=== PATIENT | female | born 1965 | race Caucasian/White ===

== ENCOUNTER → 2016-11-23 | Outpatient (CLI) | payer BC ==
--- NOTE | 2016-11-25 16:02 | MAMMOGRAPHY REPORT ---
BILATERAL DIGITAL SCREENING MAMMOGRAM TOMOSYNTHESIS WITH CAD: 11/23/2016 CLINICAL HISTORY: Routine screening. Patient has no complaints. TECHNIQUE: Breast tomosynthesis in addition to standard 2D mammography was performed. Current study was also evaluated with a Computer Aided Detection (CAD) system. COMPARISON: Comparison is made to exams dated: 04/17/2014 mammogram, 02/20/2013 mammogram, 02/15/2012 mammogram, 02/02/2011 mammogram, 01/13/2010 mammogram - [facility], and 01/07/2009. BREAST COMPOSITION: There are scattered areas of fibroglandular density in both breasts. FINDINGS: There are stable asymmetries in the left breast. No new suspicious mass, architectural dis tortion or cluster of microcalcifications is seen. IMPRESSION: ACR BI-RADS CATEGORY 1: NEGATIVE There is no mammographic evidence of malignancy. A 1 year screening mammogram is recommended. The pa tient will receive written notification of the results. Approximately 10% of breast cancers are not detected with mammography. A negative mammographic report should not delay biopsy if a clinically suggestive mass is present. Tana Villegas M.D. ay/:11/24/2016 17:34:44 Pantry Chef: Romana HUMPHREY(Juliano)(M), [facility] letter sent: Normal 1/2 BI-RADS Code: ACR BI-RADS Category 1: Negative
== END | disposition home or self-care (01) ==
LOC: C.MAMM 16:08
PROVIDERS: ATTEND Obstetrics & Gynecology
DX: Z12.31 Encounter for screening mammogram for malignant neoplasm of breast (principal)

== ENCOUNTER 2022-03-20 07:54 | Inpatient (IN) ==
--- NOTE | 2022-02-23 09:04 | PAT Medication Instructions ---
Medication Instructions Date of Service February 23, 2022 Home Medications glucosamine 375 ad-qppjnnsal-vrk no1 500 mg-C 15 mg-alberto 0.5 mg tablet (Tuxxeunjzue-Vqtiglruxmg-TOA Complex) 2 tab PO QAM hydroxyzine HCl 25 mg tablet 25 mg PO HS PRN Anxiety ibuprofen 600 mg tablet 600 mg PO Q8H PRN Pain losartan 25 mg tablet 25 mg PO QAM multivitamin 1 tab PO QAM spironolactone 25 mg tablet 25 mg PO QAM ASK your surgeon for instructions ibuprofen 600 mg tablet 600 mg PO Q8H PRN Pain STOP taking 2 weeks before surgery (or as soon as possible if surgery is within 2 weeks) glucosamine 375 hx-kwrvdutvl-pta no1 500 mg-C 15 mg-alberto 0.5 mg tablet (Waosbhyjccf-Ektjdyohwhj-YRB Complex) 2 tab PO QAM DO NOT take the morning of surgery losartan 25 mg tablet 25 mg PO QAM multivitamin 1 tab PO QAM spironolactone 25 mg tablet 25 mg PO QAM Take evening before surgery hydroxyzine HCl 25 mg tablet 25 mg PO HS PRN Anxiety (if needed) Other Notes If you have any questions please call us at [phone] or [phone] or [phone] or [phone]
--- NOTE | 2022-02-24 12:03 | Anesthesiology Consultation ---
Date of Service February 24, 2022 Assessment & Plan (1) Encounter for pre-operative examination: - COVID screening: Per assessment on 02/24: No known COVID-19 positive contacts or current COVID-19 related symptoms. Travel screen negative. Patient vaccinated. At surgeon discretion if preop Covid testing being done. - Check test AM DOS Chart Review Chart Review: Acceptable Risk for Surgery and Patient seen in Pre Admission Testing Teaching & Discussion Pre-Anesthesia Teaching/Discussion Notes: Instructed NPO after midnight before surgery,except medications with 15 cc of water. Medication instructions provided according to the PAT guidelines. History Surgery Operation Date: 03/20/22 07:45 Proposed Procedures p L4-L5 Decompression and Fusion, Spinal Cord Monitoring - Pernell Ellis, Height/Weight Height: 5 ft 3 in Weight: 110.1 kg Allergies Allergy/AdvReac Type Severity Reaction Status Date / Time Penicillins Allergy Intermediate Hives Verified 02/20/22 08:56 Sulfa (Sulfonamide Allergy Intermediate Hives Verified 02/20/22 08:56 Antibiotics) Medications Home Medications Medication Instructions Recorded Confirmed Last Taken glucosamine 375 pv-sbplgkiwu-jps 2 tab PO QAM 02/20/22 02/20/22 Unknown no1 500 mg-C 15 mg-alberto 0.5 mg tablet (Lmtireuafgk-Akmlkjczdgr-LPS Complex) hydroxyzine HCl 25 mg tablet 25 mg PO HS PRN Anxiety 02/20/22 02/20/22 Unknown ibuprofen 600 mg tablet 600 mg PO Q8H PRN Pain 02/20/22 02/20/22 Unknown losartan 25 mg tablet 25 mg PO QAM 02/20/22 02/20/22 Unknown multivitamin 1 tab PO QAM 02/20/22 02/20/22 Unknown spironolactone 25 mg tablet 25 mg PO QAM 02/20/22 02/20/22 Unknown Past Medical History Medical History Anxiety Situational Borderline high cholesterol Cardiac murmur As child Degenerative disc disease History of COVID-19 x2 total, most recent 09/2021 > symptoms resolved Hypertension Morbid obesity Osteoarthritis Exercise / Class Metabolic Activity II 4-5 Yardwork/Stairs/Walk up hill (one FS (no CP, no SOB)) Past Family History Family History Father Diabetes Grandmother (Maternal) Colon cancer Past Surgical History Surgical History History of arthroscopy left knee History of arthroscopy right elbow History of cholecystectomy Nausea and vomiting after administration of anesthetic agent Slow to wake up after anesthesia [place] teeth extracted Past Anesthesia History No Family Hx of Anesthesia Complications and Other ("Slow wake up" > no hx of reintubation) History of PONV History of PONV and Hx of Motion Sickness Social History Smoking Status: Never smoker Do You Dip or Chew Tobacco: No Hx Alcohol Use: Yes Alcohol type: wine alcohol intake frequency: holidays/special occasions only Hx Substance Use: No substance use type: does not use Review of Systems Patient denies chest pain, shortness of breath, dyspnea on exertion, fever, chills, cough, wheezing, palpitations. Physical Exam Vital Signs VITALS BP 156/84 P 68 TEMP 98.1 SP02 96%RA RESP 18 PHYSICAL Full cervical extension range of motion. Full TMJ range of motion. TMD 3 finger breaths Mallampati Score 3 Dentition: intact, crown (side) Lungs: clear throughout to auscultation Cardiac: regular rate and rhythm, no murmurs noted Spine: normal Carotid arteries: negative bruit Extremities: no edema Lab Results Anesthesia Preop Results Results Anesthesia Widget: WBC 8.12 K/ul (4.8-10.8) 02/24/22 Hgb 14.3 g/dl (12.0-16.0) 02/24/22 Hct 42.3 % (34.1-44.9) 02/24/22 Plt 277 K/uL (130-400) 02/24/22 Na 139 mmol/L (136-145) 02/24/22 K 3.6 mmol/L (3.5-5.1) 02/24/22 Cl 106 mmol/L (98-107) 02/24/22 CO2 25 mmol/L (21-32) 02/24/22 BUN 13 mg/dl (6-23) 02/24/22 Creat 0.65 mg/dl (0.6-1.2) 02/24/22 Glucose Level 84 mg/dl (70-99(Fasting)) 02/24/22 PT 10.3 Seconds (9.0-12.0) 02/24/22 PTT 28.1 Seconds (21.0-31.0) 02/24/22 INR 1.0 (0.9-1.1) 02/24/22 Urine Color Yellow 02/24/22 Urine Appearance Clear (Clear) 02/24/22 Urine pH 6.0 (4.5-7.5) 02/24/22 Urine Specific [place] 1.004 (1.000-1.030) 02/24/22 Urine Protein Negative (Negative) 02/24/22 Urine Glucose (UA) Negative (Negative) 02/24/22 Urine Ketones Negative (Negative) 02/24/22 Urine Blood Negative (Negative) 02/24/22 Urine Nitrite Negative (Negative) 02/24/22 Urine Bilirubin Negative (Negative) 02/24/22 Urine Urobilinogen Negative (Negative) 02/24/22 Urine Leukocyte Esterase Negative (Negative) 02/24/22 Blood Type A Positive 02/24/22 Antibody Screen NEGATIVE 02/24/22 Testing Electrocardiogram Date: 02/24/22 NSR with sinus arrhythmia at 72bpm. unconfirmed report. Chest X-Ray Date: 02/24/22 FINDINGS:Cardiomediastinal and hilar silhouettes are within normal limits. No pneumothorax, pleural effusion, airspace consolidation or overt pulmonary edema. Surgical clips of the upper abdomen. The bones of the chest appear grossly intact. IMPRESSION: No acute process. COVID-19 Risk Screen Screening Information COVID-19 Screen Date: 02/24/22 Exposure 21 Days Family/Household +COVID Last 21 Days: No Exposure 10 Days Any COVID Exposure Last 10 Days: No Symptoms Last 10 Days Experienced COVID Sx Last 10 Days: No + COVID 0-90 Days COVID + in Last 0-90 Days: No
[~2022-03-20 07:54] MED LIST: ACETAMINOPHEN 500 MG TAB PO SCH; CLINDAMYCIN/D5W 900 MG/50 ML BAG IV SCH; GABAPENTIN 900 MG DOSE PO SCH; LR 15ML/HR IV SCH
[2022-03-20] MEDS ORDERED: DEXAMETHASONE SOD INJ 4 MG/ML VIAL ONE (08:16)
[2022-03-20] MEDS ORDERED: fentaNYL citrate 100 MCG/2 ML VIAL ONE (08:16)
[2022-03-20] MEDS ORDERED: ROCURONIUM BROMIDE 10 MG/ML 5 ML VIAL IV ONE (08:16)
[2022-03-20] MEDS ORDERED: LIDOCAINE 2% MPF LOCAL 5 ML VIAL INFIL ONE (08:16)
[2022-03-20] MEDS ORDERED: MIDAZOLAM HCL 1 MG/ML 2ML VIAL ONE (08:16)
[2022-03-20] MEDS ORDERED: PROPOFOL IV EMULSION 10 MG/ML 20 ML VIAL IV ONE (08:16)
[2022-03-20] MEDS ORDERED: ONDANSETRON INJ 2 MG/ML 2 ML VIAL ONE ×2 (08:16→11:34)
[2022-03-20] MEDS ORDERED: HYDROmorphone INJ 2 MG/ML SYR/VIAL ONE (08:17)
[2022-03-20] MEDS ORDERED: SODIUM CHLORIDE 0.9% INJ 10 ML VIAL ONE (08:26)
[2022-03-20] MEDS ORDERED: ATROPINE SULFATE 0.1 MG/ML 10ML SYR IV PRN (08:57)
[2022-03-20] MEDS ORDERED: ePHEDrine sulfate 50 MG/ML AMP IV PRN (08:57)
[2022-03-20] MEDS ORDERED: PROMETHAZINE HCL 6.25 MG in SODIUM CHLORIDE 0.9% 50 ML IV PRN (08:57)
[2022-03-20] MEDS ORDERED: ONDANSETRON INJ 2 MG/ML 2 ML VIAL IV PRN ×2 (08:57→14:32)
[2022-03-20] MEDS ORDERED: fentaNYL citrate 100 MCG/2 ML VIAL IV PRN (08:57)
[2022-03-20] MEDS ORDERED: HYDROmorphone INJ 1 MG/ML SYRINGE IV PRN (08:57)
[2022-03-20] MEDS ORDERED: SCOPOLAMINE 1 MG TDSY TD STA (09:07)
[2022-03-20 09:15] LABS: Pregnancy Test, Serum Negative (Negative)
--- NOTE | 2022-03-20 09:34 | History & Physical Bridge Note ---
Date of Service March 20, 2022 History & Physical Bridge Note I have examined the patient, reviewed the History & Physical and in the interval since the performance of the History & Physical I have noted the following changes of clinical significance: no changes noted
--- NOTE | 2022-03-20 09:36 | History & Physical Report ---
Date of Service March 20, 2022 Assessment & Plan (1) Neurogenic claudication due to lumbar spinal stenosis: Plan: L4-L5 decompression and fusion History of Present Illness Chief Complaint: Back and leg pain Primary Care Provider: Slick Faustin This is a 56-year-old male who presents above-mentioned diagnosis after failing steps course of nonoperative care is here for surgical invention. Allergies Allergy/AdvReac Type Severity Reaction Status Date / Time Penicillins Allergy Intermediate Hives Verified 03/20/22 08:24 Sulfa (Sulfonamide Allergy Intermediate Hives Verified 03/20/22 08:24 Antibiotics) Home Medications Medication Instructions Recorded Confirmed Type glucosamine 375 kw-gfceucqnj-bjd 2 tab PO QAM 02/20/22 03/20/22 History no1 500 mg-C 15 mg-alberto 0.5 mg tablet (Zfgyxcbvunt-Ipxaghmbvdc-XVZ Complex) hydroxyzine HCl 25 mg tablet 25 mg PO HS PRN Anxiety 02/20/22 03/20/22 History ibuprofen 600 mg tablet 600 mg PO Q8H PRN Pain 02/20/22 03/20/22 History losartan 25 mg tablet 25 mg PO QAM 02/20/22 03/20/22 History multivitamin 1 tab PO QAM 02/20/22 03/20/22 History spironolactone 25 mg tablet 25 mg PO QAM 02/20/22 03/20/22 History Past Med/Surg History Medical History Anxiety Situational Borderline high cholesterol Cardiac murmur As child Degenerative disc disease History of COVID-19 x2 total, most recent 09/2021 > symptoms resolved Hypertension Morbid obesity Osteoarthritis Surgical History History of arthroscopy left knee History of arthroscopy right elbow History of cholecystectomy Nausea and vomiting after administration of anesthetic agent Slow to wake up after anesthesia [place] teeth extracted Family History Father Diabetes Grandmother (Maternal) Colon cancer Social History (System 02/02/22 @ 13:25 by Radha Gorman) Smoking Status: Never smoker Second Hand Exposure: No; Do You Dip or Chew Tobacco: No; Tobacco Cessation Education Requested by Patient: No Hx Alcohol Use: Yes Alcohol type: wine Hx Substance Use: No Preferred Language: [place] Communication Ability: Effective Facetor Required: No Beliefs That Will Affect Care: None Current Living Situation: Spouse Other Information That Helps Us Care for You: No Feels Safe at Home: Yes Safety Concerns: Feels Safe At This Time Assistive Devices: Glasses Physical Exam Physical Exam: Patient is alert and oriented Heart regular rhythm Lungs clear Results & Data Results & Data ([facility]) Vital Signs (Past 12 Hours) Vital Signs Temp Pulse Resp BP Pulse Ox O2 Del Method 03/20/22 08:26 36.7 C 73 18 161/76 H 97 Room Air
[2022-03-20] MEDS ORDERED: ceFAZolin 330 MG/ML 1 GM VIAL ONE (09:48)
[2022-03-20] MEDS ORDERED: BUPIVACAINE/EPINEPHRINE 0.25% 1:200,000 30 ML VIAL ONE (09:56)
[2022-03-20] MEDS ORDERED: SUGAMMADEX SODIUM 200 MG/2 ML VIAL IV ONE (10:42)
[2022-03-20] MEDS ORDERED: FAMOTIDINE/PF 20 MG/2 ML VIAL IV ONE (10:52)
[2022-03-20] MEDS ORDERED: FLOSEAL HEMOSTATIC MATRIX 10ML TOP ONE (11:19)
--- NOTE | 2022-03-20 11:42 | Operative Report ---
Post Operative Report Pre & Post Diagnosis Operation Date: 03/20/22 09:35 Pre-Op Diagnosis: Lumbar spinal stenosis with facet cyst and radiculopathy Post-Op Diagnosis: Same I identified the patient and participated in the time-out.: Yes Procedure Operation Date: 03/20/22 09:35 Actual Procedures #1 lumbar decompression bilateral medial facetectomies and foraminotomies L4-5. #2 posterior spinal fusion L4-5. #3 placement posterior instrumentation L4-5. #4 interbody fusion L4-L5. #5 placement of Spira 14 x 26 mm cage at L4-5. #6 placement of locally harvested morselized autograft in the posterior gutters. #7 placement I factor model V toss interbody space and posterior gutters. Surgeon Pernell Ellis, DO Piercing Artist Eric Zimmerman Estimated Blood Loss 50 Findings See Below The patient is 5 foot 3 weighing over 111 kg with a BMI in excess of 43. The patient's body habitus did contribute to significant technical difficulty required he was retractors longer instruments noted to perform her procedure. This had at least 50% increased to the operative time. Specimens None Indications This is a 56-year-old female who presents above-mentioned diagnosis after failing course of nonoperative care is here for surgical invention. Description of Procedure Patient was met with identified informed consent obtained. Patient was then taken to the operative suite underwent a patient placed in a prone position attack table top Sukhjinder frame. All bony prominences well-padded eyes inspected to ensure no external pressure placed upon them. This point the lumbar spine was prepped and draped in normal sterile fashion. Sharp dissection with the a ssistance of Bovie cautery performed down to and exposing the lamina transverse processes of L4 and L5. From caudal to cephalad fashion complete laminectomy of L4 was performed including bilateral medial facetectomies foraminotomies addressing stenosis as well as a massive facet cyst on the right facets. After complete decompression pedicle screws were placed in L4-5 bilaterally with assistance of fluoroscopy and properly sized stephan placed. By way of a transforaminal portion right complete discectomy was performed endplates curetted to subcortical any bone and a 14 x 26 mm spiral cage with I factor tapped in position. The rods were then compressed locked in final position bilaterally. The transverse processes of L4-5 burred to subcortical bleeding bone. I factor model V testing locally harvested morselized autograft placed in the posterior gutters. 15 round MEAGHAN drain inserted. The incision was then closed with 1 Vicryl the fascia 2-0 Vicryl subcutaneously and 4 Monocryl for fascial closure. Steri-Strips dressings placed. Patient waken taken to PACU in stable condition. Please note spinal cord monitoring was utilized at the procedure no changes noted. Lastly Eric Zimmerman was present out the entire surgeon while the patient positioning complex portions of the surgery and final skin closure. I attest to the content of the Intraoperative Record and any orders documented therein. Any exceptions are noted below.
--- NOTE | 2022-03-20 12:41 | Fluoroscopy Report ---
FL lumbar spine 2-3V CLINICAL HISTORY: L4-L5 DECOMPRESSION AND FUSION COMPARISON STUDY: None. FLUOROSCOPY TIME: 16 seconds. FLUOROSCOPIC IMAGES: 2 FINDINGS: Fluoroscopy was provided during L4-L5 discectomy, posterior decompression and bilateral ped icle screw fusion. Hardware is intact. No unexpected radiopaque foreign bodies. IMPRESSION: Fluoroscopy provided during L4-L5 discectomy, posterior decompression and bilateral pedi giselle screw fusion. ACT 112: Negative or not required by law. Electronically signed by: Luca Swift M.D. 03/20/2022 12:39 PM
[2022-03-20] MEDS ORDERED: SODIUM CHLORIDE 0.9% 50 ML BAG ONE (13:03)
[2022-03-20] MEDS ORDERED: PROMETHAZINE HCL INJ 25 MG/ML 1 ML VIAL ONE (13:04)
[2022-03-20] MEDS ORDERED: bisacodyL 10 MG SUPP PR PRN (14:32)
[2022-03-20] MEDS ORDERED: ALUMINUM/MAGNESIUM SUSP 30 ML UDC PO PRN (14:32)
[2022-03-20] MEDS ORDERED: LORazepam 0.5 MG TAB PO PRN (14:32)
[2022-03-20] MEDS ORDERED: LORazepam 0.5 MG in SYRINGE 0 ML IV PRN (14:32)
[2022-03-20] MEDS ORDERED: traMADol HCL 50 MG TABLET PO PRN (14:32)
[2022-03-20] MEDS ORDERED: NALOXONE HCL 0.4 MG/1 ML VIAL/CARP IV PRN (14:32)
[2022-03-20] MEDS ORDERED: SOD PHOSPHATE/SOD BIPHOSPHATE ENEMA 132 ML BTL PR PRN (14:32)
[2022-03-20] MEDS ORDERED: hydrOXYzine HCl 25 MG TAB PO PRN ×2 (14:32)
[2022-03-20] MEDS ORDERED: HYDROmorphone INJ 0.5 MG/0.5 ML SYR IV PRN (14:32)
[2022-03-20] MEDS ORDERED: METOCLOPRAMIDE HCL INJ 5 MG/ML 2 ML VIAL IV PRN (14:32)
[2022-03-20] MEDS ORDERED: DO NOT ADMINISTER PNEUMOCOCCAL VACCINE PRN (14:32)
[2022-03-20] MEDS ORDERED: PROMETHAZINE HCL 12.5 MG in SODIUM CHLORIDE 0.9% 50 ML IV PRN (14:32)
[2022-03-20] MEDS ORDERED: DO NOT ADMINISTER FLU VACCINE PRN (14:32)
[2022-03-20] MEDS ORDERED: oxyCODONE HCL IR 5 MG TAB (IMMEDIATE RELEASE) PO PRN (14:32)
[2022-03-20] MEDS ORDERED: ACETAMINOPHEN 1,000 MG/100 ML VIAL IV PRN (14:32)
[2022-03-20] MEDS ORDERED: FAMOTIDINE 20 MG TAB PO PRN (14:32)
[2022-03-20] MEDS ORDERED: MAGNESIUM HYDROXIDE SUSP 30 ML UDC PO PRN (14:32)
[2022-03-20] MEDS ORDERED: ONDANSETRON 4 MG OD TAB PO PRN (14:32)
[2022-03-20] MEDS ORDERED: diphenhydrAMINE Capsule 25 MG CAP PO PRN (14:32)
[2022-03-20] MEDS: LACTATED RINGER'S 1,000 ML IV SCH ×2 (15:03→21:56)
[2022-03-20] MEDS: CHECK SCOPOLAMINE PATCH PLACEMENT SCH ×2 (16:49→22:29)
[2022-03-20] MEDS: CLINDAMYCIN/D5W 600 MG/50 ML BAG IV SCH (17:08)
[2022-03-20] MEDS: DOCUSATE SODIUM/SENNA 50/8.6MG TAB PO SCH (19:50)
[2022-03-20] MEDS: HYDROmorphone INJ 1 MG/ML SYRINGE IV PRN (19:55)
[2022-03-21] MEDS: CLINDAMYCIN/D5W 600 MG/50 ML BAG IV SCH (01:14)
[2022-03-21] MEDS ORDERED: Nursing to Pharmacy Communication SCH (04:15)
[2022-03-21] MEDS: POLYETHYLENE (MIRALAX) 17 GM PACK PO SCH ×2 (05:30→12:35)
[2022-03-21] MEDS: HYDROmorphone INJ 1 MG/ML SYRINGE IV PRN ×2 (05:37→22:02)
[2022-03-21] MEDS: LACTATED RINGER'S 1,000 ML IV SCH (07:03)
[2022-03-21 07:10] LABS: Basophils # (auto) 0.02 K/uL (0-0.2); Basophils % (auto) 0.1 %; Hematocrit (blood only) 38.2 % (34.1-44.9); Hemoglobin 12.5 g/dl (12.0-16.0); Immature Granulocytes # (auto) 0.12 K/uL (0.00-0.02); Immature Granulocytes % (auto) 0.7 %; Lymphocytes # (auto) 1.37 K/uL (1.2-3.4); Mean Corpuscular Hemoglobin 29.9 pg (25.0-34.0); Mean Corpuscular Hgb Conc 32.7 g/dL (32.0-36.0); Mean Corpuscular Volume 91.4 fL (80.0-100.0); Mean Platelet Volume 9.9 fL (9.4-12.3); Monocytes # (auto) 0.84 K/uL (0.24-0.82); Monocytes % (auto) 4.9 %; Neutrophils # (auto) 14.68 K/uL (1.4-6.5); Neutrophils % (auto) 86.3 %; Platelet Count 273 K/uL (130-400); RDW Coefficient of Variation 12.7 % (11.5-14.5); RDW Standard Deviation 42.2 fL (36.4-46.3); Red Blood Count 4.18 M/uL (3.93-5.22); White Blood Count 17.03 K/ul (4.8-10.8)
[2022-03-21 07:35] LABS: BUN Creatinine Ratio 15.6 (10-20); Calcium 8.4 mg/dl (8.5-10.1); Creatinine Clr Calc Pharmacy 120.8 ml/min; Est GFR (African American) 117.3 ml/min; Est GFR (Non-African American) 101.2 ml/min; Potassium 3.9 mmol/L (3.5-5.1)
[2022-03-21] MEDS: SPIRONOLACTONE 25 MG TAB PO SCH (08:58)
[2022-03-21] MEDS: CHECK SCOPOLAMINE PATCH PLACEMENT SCH ×3 (08:58→20:00)
[2022-03-21] MEDS: dexAMETHasone 6 MG in SYRINGE 0 ML IV SCH (08:58)
[2022-03-21] MEDS: LOSARTAN POTASSIUM 25 MG TAB PO SCH (08:58)
--- NOTE | 2022-03-21 10:50 | Orthopedic Progress Note ---
Date of Service March 21, 2022 Assessment & Plan (1) Neurogenic claudication due to lumbar spinal stenosis: Plan: At this time we will continue physical therapy monitor MEAGHAN operatively discharge home in the next few days. Admission and Anticipated Discharge Date Admission Date: March 20, 2022 Subjective Back pain controlled leg pain improved Physical Exam Physical Exam: Patient is comfortable. Is constricted testing. Results & Data ([facility]) Vital Signs (Past 12 Hours) Vital Signs Temp Pulse Pulse Resp BP BP Pulse Ox 03/21/22 07:57 36.8 C 83 16 131/77 95 03/21/22 02:50 36.7 C 85 18 163/84 H 94 03/21/22 00:55 36.8 C 90 18 155/84 H 92 O2 Del Method 03/21/22 07:57 Room Air 03/21/22 02:50 Room Air 03/21/22 00:55 Room Air
[2022-03-21] MEDS: ACETAMINOPHEN 500 MG TAB PO PRN (12:41)
[2022-03-21] MEDS: DOCUSATE SODIUM/SENNA 50/8.6MG TAB PO SCH (19:32)
[2022-03-22] MEDS: LOSARTAN POTASSIUM 25 MG TAB PO SCH (08:28)
[2022-03-22] MEDS: SPIRONOLACTONE 25 MG TAB PO SCH (08:28)
[2022-03-22] MEDS: dexAMETHasone 6 MG in SYRINGE 0 ML IV SCH (08:29)
[2022-03-22] MEDS: CHECK SCOPOLAMINE PATCH PLACEMENT SCH (08:29)
[2022-03-22] MEDS: ACETAMINOPHEN 500 MG TAB PO PRN (08:31)
--- NOTE | 2022-03-22 11:35 | Discharge Summary ---
Date of Service March 22, 2022 Admission HPI Per Admitting Provider This is a 56-year-old male who presents above-mentioned diagnosis after failing steps course of nonoperative care is here for surgical invention. Principal Diagnosis Lumbar spinal stenosis with neurogenic medication Discharge Data Allergies Allergy/AdvReac Type Severity Reaction Status Date / Time Penicillins Allergy Intermediate Hives Verified 03/20/22 08:24 Sulfa (Sulfonamide Allergy Intermediate Hives Verified 03/20/22 08:24 Antibiotics) Procedures Performed Operation Date: 03/20/22 09:35 Actual Procedures p L4-L5 Decompression and Fusion, Spinal Cord Monitoring(Not Applicable) - Pernell Ellis DO Ordered Studies 03/20/22 09:35 [place] lumbar spine 2-3V Routine Hospital Course (1) Neurogenic claudication due to lumbar spinal stenosis: Patient 1 lumbar fusion tolerated this well stable 3. Lumbar postop day 1 she was up and ambulating progressed to postop day 2. MEAGHAN drain decreasing probably. Pain well controlled. Socially discharged home. Discharge orders and instructions from the chart for further review. Total Time Total Time Spent Total Time Spent (In Minutes): 20 minutes Discharge Plan Discharge Items Patient Disposition: Home - Self-Care Reason For Visit: Radiculopathy, Lumbar Region Discharge Diagnosis: Lumbar spinal stenosis with radiculopathy Activity: As commented below Non-emergency contact: Primary Care Provider Call non-emergency contact if: you have any medication questions Follow-up/Referrals: Slick Faustin [Primary Care Provider] - Diet: Regular Addtl Attending Provider Instructions: ACTIVITY RECOMMENDATIONS: SELF CARE INSTRUCTIONS AFTER THORACIC/LUMBAR FUSIONS 1. You may walk to your tolerance. It is good exercise for your legs and back. Expect some back and intermittent leg aches and pains. 2. You may perform "counter-top" level activities (make a sandwich, rudy with a project, etc.). 3. No bending or lifting of more than 10 pounds or back twisting of any nature (roll like a log when turning in bed). 4. You may ride in a car for 20-30 minutes at a time. No driving until after your first visit with your doctor. 5. Frequent changes of position and restricting sitting to 30 minutes at a time will help limit the amount of back spasms and stiffness you may experience. 6. You may discontinue the use of ambulatory aids (cane, crutches, etc.) once your strength and confidence allow. 7. You may capsule filling machine operator the shower and let water strike your incision when you arrive home at least once daily. Do not take a tub bath, sit in a hot tub or go into a swimming pool until after your first recheck in the office. SPECIAL CARE INSTRUCTIONS: VERY IMPORTANT TO READ AND REVIEW A. Your surgical incision has been closed with a cosmetic suture under the skin that will dissolve in about 6 weeks. In 14 days, you can use a pair of clean scissors and cut the suture that is left outside of the skin at the ends of your incision. 1. The small skin tapes can be removed 7 days after surgery if they have not fallen off by that point. 2. You may keep the wound open to air as much as possible to promote healing after post-op day number 5 unless told otherwise by your doctor. 3. If you think the wound looks like it is becoming infected (redness or worsening drainage) and/or you are experiencing fever, chill or worsening back pain and muscle spasms, contact the office so that we may evaluate you as soon as possible. B. Complications are uncommon, but please contact us if you have any signs or symptoms of: 1. wound infection (fever higher than 102.5 degrees F, redness, separation of wound, drainage, or increasing pain from the incision) 2. blood clots in legs (pain, swelling, redness and warmth in legs) 3. urinary tract infection (fever higher than 102.5 degrees F, burning upon urination or increased frequency of urination) 4. nerve problems (inability to walk on your toes or heels, numbness, loss of bowel or bladder control) 5. any other symptoms that concern you C. Please call the office at if you have any concerns or questions about your operation or recovery. D. No smoking! Smoking drastically decreases the chance of a solid fusion. E. Do not take any anti-inflammatory medications (Indocin, Advil, Motrin, Aspirin, Naprosyn, etc.) as these may inhibit the chance of a solid fusion. Tylenol is okay to take for pain. MANAGING PAIN AFTER SPINAL SURGERY 1. Narcotic medication is intended for short-term use and will be provided for surgical pain. Surgical pain usually lasts for a period of 4-6 weeks. Narcotic medication includes Percocet, Vicodin, Darvocet, Tylenol #3 or Lortab. 2. Longer-term pain is more appropriately treated with non-narcotic medication such as Tylenol ES. 3. Muscle spasm is not appropriately treated with narcotics. Muscle relaxers such as Soma, Flexeril or Skelaxin can be used along with Tylenol ES. 4. Remember that we all live with some "aches and pains". This is not unusual or uncommon after an injury or as we get older. a. Back pain is expected and may include muscle spasms for 4 to 6 weeks after surgery. The pain should gradually improve. If the pain worsens for no apparent reason, please contact the office. b. Intermittent leg pain may also be experienced and should not be concerned about unless it worsens for no apparent reason. If so, please contact the office. 5. We will provide appropriate medication within the normal guidelines of their prescribed use. We will also be very cautious and aware of potential abuse and extended duration of patients' medication needs. a. Pain medications are for your comfort and to assist with sleep and rest so that the tissue can heal. They are not provided in order to return to normal activity and should not be used through the day. To do so or worsening pain at night can result from ongoing tissue damage and development of tolerance to the prescribed medicine. 6. Please allow 2-3 days to process refills. Prescriptions will not be mailed but must be picked up at the office. FOLLOW UP VISIT: Keep your scheduled follow-up appointment. Any questions, please call the office at . Pending Studies at Discharge: No Stand-Alone Forms: [facility], Smoking Cessation Medications and NE Order Prescriptions: New tramadol 50 mg tablet 50 mg PO Q6H PRN (Reason: pain, moderate) Qty: 30 0RF oxycodone 5 mg tablet 5 mg PO Q6H PRN (Reason: pain, severe) Qty: 30 0RF Continued multivitamin Tablet 1 tab PO QAM spironolactone 25 mg Tablet 25 mg PO QAM losartan 25 mg Tablet 25 mg PO QAM hydroxyzine HCl 25 mg Tablet 25 mg PO HS PRN (Reason: Anxiety) Orhpdaxytke-Ayshh-UIO Complex [id number] mg Tablet 2 tab PO QAM ibuprofen 600 mg Tablet 600 mg PO Q8H PRN (Reason: Pain) Discharge Orders: Discharge Order (Routine); Ordered 03/22/22 Ordered By: Pernell Ellis Admission Data Admit Date/Time: 03/20/22 11:46 Attending Provider: Pernell Ellis Admit Provider: Pernell Ellis Primary Care Provider: Slick Faustin
== END 2022-03-22 15:14 | disposition home or self-care (01) | DRG 454 ==
LOC: ASU 07:54 → 3N 11:46